=== PATIENT | male | born 1970 | race Caucasian/White ===

== ENCOUNTER → 2020-06-06 | Outpatient (CLI) | payer BC ==
--- NOTE | 2020-06-06 17:06 | RAD ---
Study: XR FOOT_LEFT 3 VIEWS Indication: Nonhealing wounds. Comparison: None. Findings: Hallux valgus alignment. Cystic change without aggressive features centered at the medial margin of t he first metatarsal head. Erosion at the medial aspect of the great toe proximal phalanx adjacent to the IP joint with a slight overhanging edge on the oblique view and a sclerotic margin on the AP view . No cortical indistinctness or periostitis typical of osteomyelitis. No acute fracture. Mild right toe MTP joint arthrosis. Achilles insertion enthesophyte formation, plantar calcaneal spur and an os trigonum. Mild degenerative ridging at the dorsum of the midfoot. Mild soft tissue prominence along the medial margin of the great toe MTP and IP joints. Bandage at th e great toe MTP joint. Impression: 1. No radiographic manifestations confirmatory of osteomyelitis. 2. Great toe metatarsal and proximal phalanx cystic change at the head appears chronic and could linda terese underlying gout. Correlate with patient history. If there is further concern for osteomyelitis M RI would be more sensitive. Electronically signed by: JAZMINE SANTANA MD (06/06/2020 5:04 PM) [id number]
== END ==
LOC: RAD 14:39
PROVIDERS: ATTEND Emergency Medicine Undersea and Hyperbaric Medicine
DX: E11.621 Type 2 diabetes mellitus with foot ulcer (principal); L97.522 Non-pressure chronic ulcer of other part of left foot with fat layer exposed; S91.302A Unspecified open wound, left foot, initial encounter
CPT/HCPCS: 73630